=== PATIENT | female | born 1985 | race Caucasian/White ===

== ENCOUNTER 2024-07-14 20:31 | Emergency (ER) | payer OTHER ==
[~2024-07-14] VITALS: Ht 167.6 cm; Wt 68.0 kg
[2024-07-14 22:48] VITALS: BP 128/76; TEMP 98.2; O2SAT 100
[2024-07-14] MEDS ORDERED: AMOX-430 PO (22:59)
[2024-07-14] MEDS ORDERED: IBUPROFEN 600 MG TABLET ONE (23:02)
[2024-07-14] MEDS: IBUPROFEN 600 MG TABLET PO ONE (23:04)
== END 2024-07-14 23:17 | disposition home or self-care (01) ==
LOC: ER 20:35
DX: J06.9 Acute upper respiratory infection, unspecified (principal); J32.9 Chronic sinusitis, unspecified; H92.01 Otalgia, right ear